=== PATIENT | male | born 1985 | race African-American/Black ===

== ENCOUNTER 2017-02-27 22:25 | Emergency (ER) | payer OTHER ==
[~2017-02-27] VITALS: Ht 185.4 cm; Wt 81.7 kg
[~2017-02-27 22:25] MED LIST: AMOXICILLIN 50500 M1 PO; CEPHALEXIN 500500 M1 PO; DELTASONE20 MG PO; DOXYCYCLINE 10100 MG PO; FLEXERIL PO; IBUPROFEN 600600 M1 PO; IBUPROFEN 800800 M1 PO; MEDROLDOSEPACK PO; NAPROSYN500 MG PO; NOHOMEMEDICATIONS; NORCO 5-325 TA1 EACH PO; NORFLEX100 MG PO; TORADOL 10 MG T10 MG PO; ULTRAM 50MG TAB50 MG PO
[2017-02-27] MEDS ORDERED: MOBIC15 MG PO (23:38)
[2017-02-28 00:18] VITALS: BP 108/66
== END 2017-02-28 00:19 | disposition home or self-care (01) ==
LOC: ER 22:25
DX: S63.502A Unspecified sprain of left wrist, initial encounter (principal); F10.99 Alcohol use, unspecified with unspecified alcohol-induced disorder; X58.XXXA Exposure to other specified factors, initial encounter; Y93.67 Activity, basketball; Y92.89 Other specified places as the place of occurrence of the external cause; Y99.8 Other external cause status

== ENCOUNTER 2017-06-16 07:37 | Emergency (ER) | payer OTHER ==
[~2017-06-16] VITALS: Ht 185.4 cm; Wt 83.9 kg
[~2017-06-16 07:37] MED LIST changes: +MOBIC15 MG PO
[2017-06-16 08:37] LABS: URINE BILIRUBIN NEGATIVE (Negative); URINE BLOOD NEGATIVE (Negative); URINE COLOR YELLOW; URINE GLUCOSE-RANDOM* NEGATIVE (Negative); URINE KETONES NEGATIVE (Negative); URINE LEUKOCYTES-REFLEX NEGATIVE (Negative); URINE PROTEIN (DIPSTICK) NEGATIVE (Negative); URINE SPECIFIC GRAVITY 1.015 (1.003-1.035); URINE UROBILINOGEN 0.2 E.U./dl (0.2-1.0)
[2017-06-16 08:48] VITALS: BP 122/79
== END 2017-06-16 08:51 | disposition home or self-care (01) ==
LOC: ER 07:37
PROVIDERS: Emergency Medicine
DX: N34.2 Other urethritis (principal); F10.99 Alcohol use, unspecified with unspecified alcohol-induced disorder

== ENCOUNTER 2018-02-16 12:19 | Emergency (ER) | payer OTHER ==
[~2018-02-16] VITALS: Ht 185.4 cm; Wt 81.7 kg
[2018-02-16] MEDS ORDERED: BACTROBAN CREAM30 G1 TOP ×2 (12:53→12:55)
[2018-02-16 13:16] VITALS: BP 125/82
[2018-02-17 08:44] LABS: HSV PCR SOURCE BLISTER
[2018-02-18 20:06] LABS: HSV 1 DNA Negative (Negative); HSV 2 DNA Positive (Negative)
== END 2018-02-16 13:00 | disposition home or self-care (01) ==
LOC: ER 12:19
PROVIDERS: Physician Assistant
DX: N48.89 Other specified disorders of penis (principal)

== ENCOUNTER 2018-04-16 11:10 | Emergency (ER) | payer OTHER ==
[~2018-04-16] VITALS: Ht 185.4 cm; Wt 81.7 kg
[~2018-04-16 11:10] MED LIST changes: +BACTROBAN CREAM30 G1 TOP
[2018-04-16 11:16] VITALS: BP 125/80
[2018-04-16] MEDS ORDERED: NORCO 5-325 TA1 EACH PO (11:22)
[2018-04-16] MEDS ORDERED: PENICILLIN V P500 MG PO (11:22)
== END 2018-04-16 11:38 | disposition home or self-care (01) ==
LOC: ER 11:10
DX: K02.9 Dental caries, unspecified (principal); M84.48XA Pathological fracture, other site, initial encounter for fracture; H61.21 Impacted cerumen, right ear

== ENCOUNTER 2019-08-16 23:40 | Emergency (ER) | payer OTHER ==
[~2019-08-16] VITALS: Ht 185.4 cm; Wt 90.7 kg
[~2019-08-16 23:40] MED LIST changes: +PENICILLIN V P500 MG PO
[2019-08-17 00:29] LABS: URINE BILIRUBIN NEGATIVE (Negative); URINE BLOOD NEGATIVE (Negative); URINE CLARITY CLEAR; URINE COLOR YELLOW; URINE GLUCOSE-RANDOM* NEGATIVE (Negative); URINE KETONES NEGATIVE (Negative); URINE LEUKOCYTES-REFLEX NEGATIVE (Negative); URINE NITRITE-REFLEX NEGATIVE (Negative); URINE PROTEIN (DIPSTICK) NEGATIVE (Negative); URINE UROBILINOGEN 0.2 E.U./dl (0.2-1.0)
[2019-08-17 01:54] VITALS: BP 127/76
[2019-08-18 19:07] LABS: SYPHILIS AB Negative (Negative)
== END 2019-08-17 01:55 | disposition home or self-care (01) ==
LOC: ER 23:40
PROVIDERS: Emergency Medicine
DX: Z20.2 Contact with and (suspected) exposure to infections with a predominantly sexual mode of transmission (principal); D57.3 Sickle-cell trait